=== PATIENT | female | born 1945 | race Caucasian/White ===

== ENCOUNTER 2020-06-14 07:22 | Outpatient (REF) | payer MEDICARE, OTHER, SELFPAY ==
[2020-06-15 05:22] LABS: Lyme Abs Screen <0.90 index
== END 2020-06-14 07:23 | disposition home or self-care (01) ==
LOC: HO.WFDLDS 07:22
PROVIDERS: Visit Provider Family Medicine
DX: T14.8XXA Other injury of unspecified body region, initial encounter (principal); W57.XXXA Bitten or stung by nonvenomous insect and other nonvenomous arthropods, initial encounter
CPT/HCPCS: 36415; 86617; 86618

== ENCOUNTER → 2021-12-19 08:36 | Outpatient (BNVA) | payer MEDICARE, OTHER, SELFPAY | PROVIDERS: PCP Physician Assistant Medical; Visit Provider Physician Assistant | DX: R19.5 Other fecal abnormalities (principal) | CPT/HCPCS: 99202 ==

== ENCOUNTER 2022-01-30 09:56 | Day surgery (SDC) | payer MEDICARE, OTHER, SELFPAY ==
--- NOTE | 2022-01-29 11:51 | HO.ANESPROP2 ---
Documented by User: Anny Rico NP 01/29/22 11:51 HPI - Anesthesia Eval Consult details Narrative: 76yo F for Colonoscopy PMFSH Active Problems Active Problems: All Active Problems (Updated 12/19/21 @ 09:42 by Pamela Jenkins PA-C) Positive colorectal cancer screening using Cologuard test (Acute) Tick bite (Acute) Social History Social History (Updated 12/19/21 @ 09:03 by Pamela Jenkins PA-C) Household Members: Family Alcohol intake: former Patient Tobacco Use Status: Never used Tobacco Current occupational status: retired Meds Allergies Allergy/AdvReac Type Severity Reaction Status Date / Time cephalexin Allergy Mild hives Verified 12/19/21 08:37 doxycycline Allergy Mild hives Verified 12/19/21 08:37 Home Medications Medication Instructions Recorded Confirmed Last Taken Type cholecalciferol (vitamin D3) 50 50 mcg PO DAILY 06/13/20 12/19/21 Unknown History mcg (2,000 unit) capsule losartan 100 mg tablet 100 mg PO DAILY 06/13/20 12/19/21 Unknown History lovastatin 20 mg tablet 20 mg PO DAILY 06/13/20 12/19/21 Unknown History cxsvidhg-zmxaije-dcoh-lutein tablet tab PO 06/13/20 12/19/21 Unknown History Exam Exam Date and Time: January 29, 2022 1151 Assessment and Plan Assessment Anesthesia Assessment: Chart Reviewed Documented by User: Merrick Alegria MD 01/30/22 16:13 PMFSH Past Medical History Functional capacity: independent ambulation Family History Family history of problems with anesthesia: No Surgical History History of Problems with Anesthesia: No Social History Social History (Updated 12/19/21 @ 09:03 by Pamela Jenkins PA-C) Household Members: Family Alcohol intake: former Patient Tobacco Use Status: Never used Tobacco Current occupational status: retired Meds Allergies Allergy/AdvReac Type Severity Reaction Status Date / Time cephalexin Allergy Mild hives Verified 12/19/21 08:37 doxycycline Allergy Mild hives Verified 12/19/21 08:37 Home Medications Medication Instructions Recorded Confirmed Last Taken Type cholecalciferol (vitamin D3) 50 50 mcg PO DAILY 06/13/20 12/19/21 Unknown History mcg (2,000 unit) capsule losartan 100 mg tablet 100 mg PO DAILY 06/13/20 12/19/21 Unknown History lovastatin 20 mg tablet 20 mg PO DAILY 06/13/20 12/19/21 Unknown History gvpjstaf-mnrgkho-gack-lutein tablet tab PO 06/13/20 12/19/21 Unknown History Exam Airway Mallampati Class: III TM Dist: >3cm Neck ROM: Full Loose/Missing/Broken Teeth: Yes (Multiple chipped , implant ) Heart: S1,S2 Lungs: b/l breath sounds Assessment and Plan Assessment Anesthesia Assessment: Anesthesia Plan Discussed Final Anesthetic Review Family History of Problems with Anesthesia: No History of Problems with Anesthesia: No NPO: Yes ASA Class: II Final Preanesthetic Review: Meds/Allgs Chart Reviewed, Consent Obtained/Reviewed and Anes Risks/Benef Reviewed Patient Risk: Intermediate Procedure Risk: Intermediate Anesthetic Plan Anesthetic Plan: MAC: Disposition: Standard PACU
[2022-01-30 09:43] VITALS: BMI 33.3
[2022-01-30 09:57] VITALS: BP 138/82; PULSE 99; RESP 16; TEMP 36.6; O2SAT 96
--- NOTE | 2022-01-30 10:09 | MHC.SHP ---
Pre-Procedural Eval Section A Date of Service: 01/30/22 Section B Chief Complaint: positive cologuard Relevant Family History (Specify if Yes): No Relevant Social History: None Present Medications: see Short Stay Collaborative assessment Medical History: Significant History (HTN, HLP) History of Previous Operations: No relevant previous surgery Allergies: Allergies Allergy/AdvReac Type Severity Reaction Status Date / Time cephalexin Allergy Mild hives Verified 12/19/21 08:37 doxycycline Allergy Mild hives Verified 12/19/21 08:37 Review of Systems Sugical H&P ROS: Negative: Constitution, Cardiovascular, Respiratory, Neurological, Psychiatric, Hem-Onc, Allergic/Immunologic, Gastrointestinal, Genitourinary, Musculoskeletal, Integumentary, Endocrine and Eyes/Ears/Nose/Throat Exam Surgical H&P Exam: Normal: HEENT, Normal: Heart, Normal: Lungs, Normal: Extremities, Normal: Abdomen, Normal: Skin and Normal: Neurological Plan Diagnosis/Plan: Unchanged I have reviewed the history and physical and performed a pertinent physical examination on my patient. No changes have occurred unless specified. Time Spent With Patient Time: Total time managing care of this patient today ____ minutes.
[2022-01-30] MEDS: Lactated Ringers 1,000 ML 100 ML IVCONT (10:17)
--- NOTE | 2022-01-30 10:54 | W.PM.OPN ---
Operative Note Operative Note Date of Service: 01/30/22 Narrative: Operative Information Procedure Description: Colonoscopy Indication: pos cologuard Anesthesia: MAC COLONOSCOPY Instrument: Olympus variable stiffness pediatric scope 190L Colonoscopy Monitoring: Vital signs and clinical assessment, continuous EKG monitoring, Pulse oximetry, Carbon Dioxide monitoring and blood pressure monitoring were done throughout the procedure. Colon withdrawal time was 12 minutes. Procedure: The patient was placed in the left lateral decubitis position and pre-procedure medications were administered. After a digital rectal examination of the ano-rectum, the video colonoscope was inserted into the rectum and advanced through the colon to the cecum/TI. The colonoscope was slowly withdrawn in a retrograde panoramic fashion and the colon mucosa was carefully examined including a retroflexed view of the rectum. Findings and interventions are described below. Procedure Difficulty: easy Findings: Terminal Ileum- mild erythema, bx taken Cecum: flat laterally spreading polyp noted 12 mm, lifted with saline and then removed with hot snare and edges ablated Ascending Colon: normal Transverse Colon -normal Descending Colon:normal Sigmoid Colon: mild diverticulosis, 12-14 mm flat polyp, laterally spreading type, lifted with saline and then removed with hot snare, edges ablated Rectum: Retroflexion with small internal hemorrhoids, grade I Anorectum - normal Colon preparation: [place] Bowel Preparation Scale Right colon; 2 Transverse colon: 3 Left colon; 3 (0 = Unprepared colon segment with mucosa not seen due to solid stool that cannot be cleared. 1 = Portion of mucosa of the colon segment seen, but other areas of the colon segment not well seen due to staining, residual stool and/or opaque liquid. 2 = Minor amount of residual staining, small fragments of stool and/or opaque liquid, but mucosa of colon segment seen well. 3 = Entire mucosa of colon segment seen well with no residual staining, small fragments of stool or opaque liquid) Impression and Post Procedure Diagnosis: polyps internal hemorrhoids diverticular disease mild ileitis Plan: High fiber diet leaflet Avoid straining at stool, epsom salts and sitz bath, anusol supps or cream Repeat Colonoscopy in 1-2 years due to discrete flat polyps removed today or earlier if clinically indicated Above findings were reviewed with the patient and relevant handouts were provided if indicated.
[2022-01-30 10:55] VITALS: BP 80/44; PULSE 85; RESP 16; TEMP 36.1; O2SAT 97
[2022-01-30 11:10] VITALS: BP 101/59; PULSE 86; RESP 16; TEMP 36.3; O2SAT 95
[2022-01-30 11:16] VITALS: BP 116/68
== END 2022-01-30 12:04 | disposition home or self-care (01) ==
PROVIDERS: PCP Physician Assistant Medical; Visit Provider Internal Medicine Gastroenterology
PROC: 0DJD8ZZ Inspection of Lower Intestinal Tract, Via Natural or Artificial Opening Endoscopic (ICD-10-PCS; CPT 45378; principal; 2022-01-30 11:10)
DX: R19.5 Other fecal abnormalities (principal); D12.0 Benign neoplasm of cecum; K63.5 Polyp of colon; K57.30 Diverticulosis of large intestine without perforation or abscess without bleeding; K64.0 First degree hemorrhoids; I10 Essential (primary) hypertension; E78.5 Hyperlipidemia, unspecified; Z79.899 Other long term (current) drug therapy; Z88.1 Allergy status to other antibiotic agents
CPT/HCPCS: 45385; 45381; 88305